=== PATIENT | female | born 1945 | race Caucasian/White ===

== ENCOUNTER 2018-01-17 10:00 | Emergency (ER) | payer OTHER ==
[~2018-01-17] VITALS: Ht 165.1 cm; Wt 80.7 kg
[2018-01-17] MEDS ORDERED: FUROSEMIDE40 MG (10:13)
[2018-01-17] MEDS ORDERED: GABAPENTIN100 MG (10:13)
[2018-01-17] MEDS ORDERED: SYNTHROID50 MCG (10:14)
== END 2018-01-17 16:01 | disposition home or self-care (01) ==
LOC: ER 10:00
DX: S30.0XXA Contusion of lower back and pelvis, initial encounter (principal); S40.012A Contusion of left shoulder, initial encounter; S20.222A Contusion of left back wall of thorax, initial encounter; S20.221A Contusion of right back wall of thorax, initial encounter; S19.89XA Other specified injuries of other specified part of neck, initial encounter; W06.XXXA Fall from bed, initial encounter; Y93.89 Activity, other specified; Y92.018 Other place in single-family (private) house as the place of occurrence of the external cause; Y99.8 Other external cause status

== ENCOUNTER 2018-03-09 17:24 | Inpatient (IN) | payer OTHER ==
[~2018-03-09] VITALS: Ht 160 cm; Wt 77.1 kg
[~2018-03-09 17:24] MED LIST: FUROSEMIDE40 MG; GABAPENTIN100 MG; SYNTHROID50 MCG
[2018-03-09] MEDS ORDERED: ZANTAC300 MG (17:39)
[2018-03-09] MEDS ORDERED: FOLIC ACID1 MG (17:39)
[2018-03-09] MEDS ORDERED: ALDACTONE25 MG (17:40)
[2018-03-09] MEDS ORDERED: FUROSEMIDE20 MG (17:40)
[2018-03-09] MEDS ORDERED: SINGULAIR10 MG (17:41)
[2018-03-09] MEDS ORDERED: CLONAZEPAM2 MG (17:41)
[2018-03-21] MEDS ORDERED: SPIRONOLACTONE25 MG PO (16:07)
[2018-03-21] MEDS ORDERED: CONSTULOSE10 GM/15 M PO (16:08)
[2018-03-21] MEDS ORDERED: PROPRANOLOL HCL10 MG PO (16:09)
== END 2018-03-21 16:36 | disposition home or self-care (01) | DRG 441 ==
LOC: ER 17:24 → MEDJ 21:55
PROC: BW40ZZZ Ultrasonography of Abdomen (ICD-10-PCS; principal; 2018-03-10)
PROC: BF37ZZZ Magnetic Resonance Imaging (MRI) of Pancreas (ICD-10-PCS; 2018-03-11)
PROC: BW30Y0Z Magnetic Resonance Imaging (MRI) of Abdomen using Other Contrast, Unenhanced and Enhanced (ICD-10-PCS; 2018-03-16)
DX: K72.00 Acute and subacute hepatic failure without coma (principal); K85.80 Other acute pancreatitis without necrosis or infection; K29.00 Acute gastritis without bleeding; E11.9 Type 2 diabetes mellitus without complications; E03.8 Other specified hypothyroidism; K74.69 Other cirrhosis of liver
CPT/HCPCS: 74182